=== PATIENT | female | born 1960 | race American Indian/Alaskan Native ===

== ENCOUNTER 2019-02-25 13:48 | Emergency (ER) | payer MEDICAID ==
[2019-02-25 14:12] VITALS: BP 134/74
--- NOTE | 2019-02-25 14:58 | XRay Report ---
RIGHT FOOT, 3 VIEWS INDICATION: foot pain and swelling after wearing heals. COMPARISON: None. IMPRESSION: Normal bone mineralization. No evidence for fracture, malalignment or bone lesion. Mode rate joint space narrowing is noted at the first metatarsophalangeal joint. The remaining joint space s are within normal limits. Small plantar spur is noted. The soft tissues are unremarkable. Signer Name: Narinder Santos Jr, MD Signed: 02/25/2019 2:54 PM Workstation Name: [id number]
--- NOTE | 2019-02-25 17:08 | Emergency Department Report ---
HPI - General Chief Complaint: Extremity Injury, Lower Time Seen by Provider: 02/25/19 16:50 - HPI HPI: 58-year-old -[place] female presents to the emergency department with complaint of some right foot pain and swelling that has been going on since Sunday, 2 days ago. She says that this started after she wore high heels on Sunday evening, which she does not do often. She denies any fall or injury. No skin color change, warmth, fluctuance. No past medical history. She has not taken anything for her symptoms prior to presentation today. ED Past Medical Hx - Past Medical History Previous Medical History?: No - Surgical History Past Surgical History?: No - Social History Smoking Status: Former Smoker Substance Use Type: Alcohol, Marijuana - Medications Home Medications: Home Medications Medication Instructions Recorded Confirmed Last Taken Type methOCARBAMOL [Robaxin TAB] 500 mg PO Q6H PRN #15 tablet 07/08/18 Unknown Rx traMADol [Ultram] 50 mg PO Q6HR PRN #12 tablet 07/08/18 Unknown Rx Ibuprofen [Motrin 800 MG tab] 800 mg PO Q8HR PRN #20 tablet 02/25/19 Unknown Rx ED Review of Systems ROS: Stated complaint: R FOOT ISSUES Other details as noted in HPI Comment: All other systems reviewed and negative Constitutional: denies: chills, fever Musculoskeletal: joint swelling, arthralgia Skin: denies: rash, lesions Neurological: denies: numbness, paresthesias Physical Exam - Physical Exam Vital Signs: Vital Signs 02/25/19 14:10 Temperature 98.7 F Pulse Rate 80 Respiratory 20 Rate Blood Pressure 134/74 O2 Sat by Pulse 98 Oximetry Physical Exam: GENERAL: The patient is well-developed well-nourished. HENT: Normocephalic. Atraumatic. Patient has moist mucous membranes. EYES: Extraocular motions are intact. NECK: Supple. Trachea is midline. ABDOMEN: There is no abdominal distention. SKIN: Very mild nonpitting swelling to the right medial midfoot. NEURO: The patient is awake, alert, and oriented. The patient is cooperative. Normal speech. MUSCULOSKELETAL: There is some tenderness to palpation to the right medial midfoot but no obvious deformity. +2 over 4 dorsalis pedis pulse. Capillary refill less than 2 seconds.. ED Course Vital Signs 10/01/19 14:10 Temperature 98.7 F Pulse Rate 80 Respiratory 20 Rate Blood Pressure 134/74 O2 Sat by Pulse 98 Oximetry ED Medical Decision Making - Radiology Data Radiology results: image reviewed interpreted by me: X-ray of the right foot does not show any fracture, dislocation or any acute process. - Medical Decision Making Patient presents to the emergency department with some pain and swelling to the right medial mid foot after wearing high-heeled shoes over the weekend. An x- ray does not show any fracture, dislocation or any acute process. She is neurovascularly intact. She'll be given some anti-inflammatories and a referral for podiatry. - Differential Diagnosis foot contusion, foot sprain, fracture Critical Care Time: No Critical care attestation.: If time is entered above; I have spent that time in minutes in the direct care of this critically ill patient, excluding procedure time. ED Disposition Clinical Impression: Right foot pain, Foot swelling Disposition: - TO HOME OR SELFCARE Is pt being admited?: No Condition: Stable Additional Instructions: Please follow-up with a primary care physician in the next few days. I am giving you a referral for a local train control electronic technician/foot doctor, Dr. Villeda, to follow up regarding your foot pain. Return to the emergency Department with any worsening of your symptoms or any acute distress. Prescriptions: Ibuprofen [Motrin 800 MG tab] 800 mg PO Q8HR PRN #20 tablet PRN Reason: Pain Referrals: HORACIO VILLEDA DPM [Staff Physician] - 2-3 Days Time of Disposition: 17:08
== END 2019-02-25 17:23 | disposition home or self-care (01) ==
LOC: ED 13:48
DX: M79.671 Pain in right foot (principal); M79.89 Other specified soft tissue disorders; F12.10 Cannabis abuse, uncomplicated; Z87.891 Personal history of nicotine dependence

== ENCOUNTER 2019-04-01 06:30 | Emergency (ER) | payer MEDICAID ==
[2019-04-01] MEDS ORDERED: ASPIRIN 325 MG TAB PO ONE ×2 (06:39→12:01)
--- NOTE | 2019-04-01 07:10 | XRay Report ---
CHEST 1 VIEW 04/01/2019 6:57 AM INDICATION / CLINICAL INFORMATION: Chest Pain. COMPARISON: 07/08/18 FINDINGS: SUPPORT DEVICES: None. HEART / MEDIASTINUM: No significant abnormality. LUNGS / PLEURA: No significant pulmonary or pleural abnormality. No pneumothorax. ADDITIONAL FINDINGS: No significant additional findings. IMPRESSION: 1. No acute findings. Signer Name: Pietro Valenzuela MD Signed: 04/01/2019 7:05 AM Workstation Name: [id number]
[2019-04-01 07:12] LABS: Basophils % (Auto) 0.8 % (0.0-1.8); Eosinophils # (Auto) 0.2 K/mm3 (0.0-0.4); Eosinophils % (Auto) 4.7 % (0.0-4.3); Hematocrit 37.1 % (30.3-42.9); Lymphocytes # (Auto) 1.2 K/mm3 (1.2-5.4); Lymphocytes % (Auto) 27.6 % (13.4-35.0); Mean Corpuscular HGB Conc 32 % (30-34); Mean Corpuscular Volume 77 fl (79-97); Monocytes # (Auto) 0.3 K/mm3 (0.0-0.8); Platelet Count 200 K/mm3 (140-440); Red Blood Count 4.84 M/mm3 (3.65-5.03); Red Cell Distribution Width 16.4 % (13.2-15.2)
[2019-04-01 07:30] LABS: BUN/Creatinine Ratio 18; Blood Urea Nitrogen 9 mg/dL (7-17); Hemolysis Index 47
[2019-04-01] MEDS ORDERED: KETOROLAC 30 MG/1 ML INJ IM ONE (10:01)
--- NOTE | 2019-04-01 10:15 | Emergency Department Report ---
ED Chest Pain HPI - General Chief Complaint: Chest Pain Stated Complaint: CHEST PAIN COUGH Time Seen by Provider: 04/01/19 09:54 Source: patient Mode of arrival: Ambulatory Limitations: No Limitations - History of Present Illness Initial Comments: 58-year-old -[place] female presents to the emergency department with complaint of some midsternal to left-sided chest pain that has been going on for the past 3 days. It is a dull aching pain and has been constant since it began. She denies any fever, shortness of breath, back pain, nausea, vomiting or diaphoresis. The pain does radiate up towards the shoulder and neck. She has not taken anything for her symptoms prior to presentation. She is a tobacco smoker but denies any illicit drug use. She has a past medical history of hyperthyroidism and coronary artery disease with previous SC in 2009. She does not have a primary care physician or industrial engineering. No cardiac stents in place. No recent travel or sick contacts at home. - Related Data Previous Rx's Medication Instructions Recorded Last Taken Type methOCARBAMOL [Robaxin TAB] 500 mg PO Q6H PRN #15 tablet 07/08/18 Unknown Rx traMADol [Ultram] 50 mg PO Q6HR PRN #12 tablet 07/08/18 Unknown Rx Ibuprofen [Motrin 800 MG tab] 800 mg PO Q8HR PRN #20 tablet 04/01/19 Unknown Rx Allergies Allergy/AdvReac Type Severity Reaction Status Date / Time No Known Allergies Allergy Verified 04/01/19 09:56 Heart Score - HEART Score History: Slightly suspicious EKG: Normal Age: 45-65 Risk factors: 1-2 risk factors Troponin: < normal limit HEART Score: 2 - Critical Actions Critical Actions: 0-3 pts:0.9-1.7%risk of adverse cardiac event.Candidate for discharge ED Review of Systems ROS: Stated complaint: CHEST PAIN COUGH Other details as noted in HPI Comment: All other systems reviewed and negative Constitutional: chills, fever Respiratory: denies: cough, shortness of breath Cardiovascular: chest pain. denies: palpitations Gastrointestinal: denies: abdominal pain, vomiting Musculoskeletal: denies: back pain, joint swelling Neurological: denies: headache, weakness ED Past Medical Hx - Past Medical History Previous Medical History?: Yes Additional medical history: hyperthyroid - Surgical History Past Surgical History?: No - Social History Smoking Status: Current Some Day Smoker Substance Use Type: None - Medications Home Medications: Home Medications Medication Instructions Recorded Confirmed Last Taken Type methOCARBAMOL [Robaxin TAB] 500 mg PO Q6H PRN #15 tablet 07/08/18 Unknown Rx traMADol [Ultram] 50 mg PO Q6HR PRN #12 tablet 07/08/18 Unknown Rx Ibuprofen [Motrin 800 MG tab] 800 mg PO Q8HR PRN #20 tablet 04/01/19 Unknown Rx ED Physical Exam - General Limitations: No Limitations - Other Other exam information: GENERAL: The patient is well-developed well-nourished. HENT: Normocephalic. Atraumatic. Patient has moist mucous membranes. EYES: Extraocular motions are intact. NECK: Supple. Trachea is midline. CHEST/LUNGS: Clear to auscultation. There is no respiratory distress noted. There is some reproducible chest pain to palpation but no crepitus or deformity. HEART/CARDIOVASCULAR: Regular. There is no tachycardia. There is no murmur. ABDOMEN: Abdomen is soft, nontender. Patient has normal bowel sounds. There is no abdominal distention. SKIN: Skin is warm and dry. NEURO: The patient is awake, alert, and oriented. The patient is cooperative. The patient has no focal neurologic deficits. Normal speech. MUSCULOSKELETAL: There is no tenderness or deformity. There is no evidence of acute injury. ED Course Vital Signs 04/01/19 04/01/19 06:32 06:36 Temperature 98.8 F 98.6 F Pulse Rate 71 Respiratory 18 Rate Blood Pressure 148/84 O2 Sat by Pulse 98 Oximetry ANGEI score - Angie Score Age > 65: (0) No Aspirin use within the Past 7 Days: (0) No 3 or more CAD Risk Factors: (0) No 2 or more Angina events in past 24 hrs: (0) No Known CAD with more than 50% Stenosis: (0) No Elevated Cardiac Markers: (0) No ST Deviation Greater than 0.5mm: (0) No ANGIE Score: 0 ED Medical Decision Making - Lab Data Result diagrams: 04/01/19 06:51 04/01/19 06:51 - EKG Data -: EKG Interpreted by [place] EKG shows normal: sinus rhythm, axis, intervals, QRS complexes, ST-T waves Rate: normal - EKG Data When compared to previous EKG there are: previous EKG unavailable Interpretation: normal EKG - Radiology Data Radiology results: report reviewed, image reviewed interpreted by me: Chest x-ray does not show any acute process. There are no pleural effusions, obvious pneumonia and there is no pneumothorax. CTA CHEST WITH IV CONTRAST INDICATION: Chest pain, elevated d-dimer. TECHNIQUE: Axial CT images were obtained through the chest after injection of 100 mL Omnipaque 350 IV contrast. 3 plane MIP reconstructions were produced. All CT scans at this location are performed using CT dose reduction for ALARA by means of automated exposure control. COMPARISON: One view of the chest from earlier today. FINDINGS: PULMONARY ARTERIES: Well-opacified without distinct thromboemboli. AORTA AND ARTERIES: The aorta and great vessels are patent and normal in caliber with mild atherosclerosis. There is mild coronary atherosclerosis. MEDIASTINUM: The thyroid gland is unremarkable. The trachea and main bronchi are patent and normal in caliber. No mass or lymphadenopathy. Normal heart size without a pericardial effusion. LUNGS: No suspicious consolidation, nodule or mass. No pneumothorax or pleural effusion. ADDITIONAL FINDINGS: None. UPPER ABDOMEN: Along the lateral segment of the left hepatic lobe anteriorly is a hyperenhancing lesion measuring 2.2 x 1.2 cm on image 92 of series 2. No additional significant abnormality. BONES: No acute abnormality is seen. There are degenerative changes throughout the spine. IMPRESSION: 1. No CT evidence for pulmonary embolism. 2. No acute abnormality of the chest. 3. Indeterminate hyperenhancing left hepatic lobe lesion as above. A nonemergent multiphase CT of the abdomen with and without contrast is recommended for further evaluation. - Medical Decision Making This patient presents to the emergency department with a three-day history of some constant midsternal to left-sided chest pain. On examination she has normal sounding heart and lungs to auscultation. Some of the pain is reproducible to palpation without any crepitus or deformity felt. EKG was normal without ST elevation SC, ischemia or dysrhythmia. Chest x-ray did not show any pneumonia, pneumothorax, focal consolidation, pleural effusions, or any other acute process. The patient's labs were unremarkable including negative troponins 3 but she did have a slightly elevated and equivocal d-dimer. For this reason CT angiography of the chest was completed but it did not show any signs of any pulmonary embolism or any acute abnormality of the chest. The patient was given some Toradol and upon reevaluation her chest pain has greatly improved, if not resolved. Vital signs of been stable throughout her ED course. The patient is low on the heart and ANGIE score for risk stratification. As per our protocol, with a heart score of 2 or less, the patient will have close outp atient follow-up with [facility] cardiology. She has been instructed to return to the emergency department immediately with any return or worsening of her symptoms, or if any acute distress. - Differential Diagnosis SC, PE, costochondritis, pneumonia Critical Care Time: No Critical care attestation.: If time is entered above; I have spent that time in minutes in the direct care of this critically ill patient, excluding procedure time. ED Disposition Clinical Impression: Chest pain Qualifiers: Chest pain type: unspecified Qualified Code(s): R07.9 - Chest pain, unspecified Disposition: DC- TO HOME OR SELFCARE Is pt being admited?: No Condition: Stable Instructions: Chest Pain (ED) Additional Instructions: Please follow-up with a primary care physician in the next few days. I have sent your contact information to [facility]. Someone from the cardiology office will be contacting you shortly to arrange close outpatient follow-up. However, return to the emergency department immediately with any return of your chest pain, worsening of your symptoms, or any acute distress. Prescriptions: Ibuprofen [Motrin 800 MG tab] 800 mg PO Q8HR PRN #20 tablet PRN Reason: Pain Referrals: [facility] [Provider Group] - 2-3 Days [facility] [Outside] - 2-3 Days TRAVIS POLLARD MD [Staff Physician] - 2-3 Days Time of Disposition: 13:37
--- NOTE | 2019-04-01 13:09 | Cat Scan Report ---
CTA CHEST WITH IV CONTRAST INDICATION: Chest pain, elevated d-dimer. TECHNIQUE: Axial CT images were obtained through the chest after injection of 100 mL Omnipaque 350 IV contrast. 3 plane MIP reconstructions were produced. All CT scans at this location are performed using CT dose reduction for ALARA by means of automated exposure control. COMPARISON: One view of the chest from earlier today. FINDINGS: PULMONARY ARTERIES: Well-opacified without distinct thromboemboli. AORTA AND ARTERIES: The aorta and great vessels are patent and normal in caliber with mild atheroscle rosis. There is mild coronary atherosclerosis. MEDIASTINUM: The thyroid gland is unremarkable. The trachea and main bronchi are patent and normal in caliber. No mass or lymphadenopathy. Normal heart size without a pericardial effusion. LUNGS: No suspicious consolidation, nodule or mass. No pneumothorax or pleural effusion. ADDITIONAL FINDINGS: None. UPPER ABDOMEN: Along the lateral segment of the left hepatic lobe anteriorly is a hyperenhancing lesi on measuring 2.2 x 1.2 cm on image 92 of series 2. No additional significant abnormality. BONES: No acute abnormality is seen. There are degenerative changes throughout the spine. IMPRESSION: 1. No CT evidence for pulmonary embolism. 2. No acute abnormality of the chest. 3. Indeterminate hyperenhancing left hepatic lobe lesion as above. A nonemergent multiphase CT of the abdomen with and without contrast is recommended for further evaluation. Signer Name: Alex Meyers MD Signed: 04/01/2019 1:05 PM Workstation Name: [id number]
[2019-04-01 14:21] VITALS: BP 129/74
== END 2019-04-01 14:00 | disposition home or self-care (01) ==
LOC: ED 06:30
DX: R07.89 Other chest pain (principal); F17.200 Nicotine dependence, unspecified, uncomplicated; Z79.1 Long term (current) use of non-steroidal anti-inflammatories (NSAID); Z79.899 Other long term (current) drug therapy
CPT/HCPCS: 36415; 71045; 71275; 80048; 84484; 85025; 85379; 93005; 93010; 96372; 99285; J1885; Q9967